=== PATIENT | female | born 1945 | race Caucasian/White ===

== ENCOUNTER 2020-03-18 17:37 | Emergency (ER) | payer OTHER ==
--- OUTSIDE RECORDS SUMMARY | 2020-03-18 17:56 | XMS REPORT | Clinical Summary ---
:1945 Author Organization [facility] Address [address] [place] [address] Care Team Providers Name Role Phone Asked, No Pcp Primary Care Provider Unavailable Allergies Not on File Medications Not on file Active Problems Not on file Social History Tobacco Use Types Packs/Day Years Used Date Never Assessed Sex Assigned at Date Recorded Not on file Last Filed Vital Signs Not on file Plan of Treatment Health Maintenance Due Date Last Done Comments COVID-19 VACCINE (1 of 2) 1961 BREAST CANCER SCREENING 1995 COLONOSCOPY SCREENING 1995 SHINGLES VACCINES (#1) 1995 65+ PNEUMOCOCCAL VACCINE (1 of 1 - PPSV23) 2010 INFLUENZA VACCINE 09/26/2019 Results Not on fileafter 2019 Advance Directives For more information, please contact: [phone] Type Date Recorded 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
--- OUTSIDE RECORDS SUMMARY | 2020-03-18 17:56 | XMS REPORT | Continuity of Care Document ---
:1945 Author Organization [facility] t Address [address] [place] [address] Care Team Providers Name Role Phone Asked, Pcp Primary Care Physician Unavailable Problems This patient has no known problems. Allergies, Adverse Reactions, Alerts This patient has no known allergies or adverse reactions. Social History Social Habit Start Date Stop Date Quantity Comments Source Sex Assigned At Jada [facility]oge[facility] Medications This patient has no known medications. Procedures This patient has no known procedures. Plan of Care Planned Activity Planned Date Details Comments Source Future Scheduled 2019-09-26 INFLUENZA VACCINE [place] [facility] 00:00:00 [code = INFLUENZA VACCINE] Future Scheduled 2010 65+ PNEUMOCOCCAL [place] [facility] Test 00:00:00 VACCINE (1 of 1 - PPSV23) [code = 65+ PNEUMOCOCCAL VACCINE (1 of 1 - PPSV23)] Future Scheduled 1995 BREAST CANCER [facility] Test 00:00:00 SCREENING [code = BREAST CANCER SCREENING] Future Scheduled 1995 COLONOSCOPY SCREENING [facility] Test 00:00:00 [code = COLONOSCOPY SCREENING] Future Scheduled 1995 SHINGLES VACCINES (#1) [place] [facility] Test 00:00:00 [code = SHINGLES VACCINES (#1)] Future Scheduled 1961 COVID-19 VACCINE (1 of [place] [facility] Test 00:00:00 2) [code = COVID-19 VACCINE (1 of 2)] Results This patient has no known results.
--- NOTE | 2020-03-18 20:55 | RAD REPORT ---
EXAM DESCRIPTION: RAD - Elbow Right 3 View - 03/18/2020 7:20 pm CLINICAL HISTORY: Pain;Swelling, trip and fall COMPARISON: No comparisons FINDINGS: Transverse fracture is present through the olecranon of the ulna. The proximal olecranon f racture fragment is distracted 2 cm. Fracture involves the articular surface. No distal humerus or pr oximal radius fracture. Soft tissue contusion and edema is present posterior to the elbow joint. No f oreign body. IMPRESSION: Fracture of the right side olecranon with 2 cm retraction of the fracture fragment from the body of the ulna.
--- NOTE | 2020-03-18 21:42 | ER ---
Nurse's Notes [facility] Name: Chelo Rdz Age: 75 yrs Sex: Female : 1945 Arrival Date: 03/18/2020 Time: 17:39 Bed 18 Private MD: Diagnosis: Right Olecranon Fracture;Fall-Mechanical Presentation: 03/18 18:25 Chief complaint: Patient states: Tripped and fell, landed on R elbow at about 1700 ca1 today. C/O R elbow pain and swelling. Denies LOC. Denies hitting head. Coronavirus screen: Client denies travel out of the [place] in the last 14 days. At this time, the client does not indicate any symptoms associated with coronavirus-19. Ebola Screen: Patient negative for fever greater than or equal to 101.5 degrees Fahrenheit, and additional compatible Ebola Virus Disease symptoms Patient denies exposure to infectious person. Patient denies travel to an Ebola-affected area in the 21 days before illness onset. No symptoms or risks identified at this time. Initial Sepsis Screen: Does the patient meet any 2 criteria? No. Patient's initial sepsis screen is negative. Does the patient have a suspected source of infection? No. Patient's initial sepsis screen is negative. Risk Assessment: Do you want to hurt yourself or someone else?. Onset of symptoms was March 18, 2020. 18:25 Method Of Arrival: Ambulatory ca1 18:25 Acuity: OLLIE 4 ca1 Historical: - Allergies: 18:28 No Known Allergies; ca1 - PMHx: 18:28 High Cholesterol; ca1 - PSHx: 18:28 D \T\ C; leg; ca1 - Immunization history:: Pneumococcal vaccine is up to date, Flu vaccine is up to date. - Social history:: Smoking status: Patient reports the use of cigarette tobacco products, smokes one-half pack cigarettes per day. Screenin:09 Abuse screen: Denies threats or abuse. Denies injuries from another. Nutritional mg2 screening: No deficits noted. Tuberculosis screening: No symptoms or risk factors identified. Fall Risk Fall in past 12 months (25 points). Assessment: 20:45 General: Appears in no apparent distress. comfortable, Behavior is calm, cooperative. mg2 Pain: Complains of pain in right elbow. Neuro: Level of Consciousness is awake, alert, obeys commands, Oriented to person, place, time, situation. Cardiovascular: Capillary refill < 3 seconds Patient's skin is warm and dry. Respiratory: Airway is patent Respiratory effort is even, unlabored, Respiratory pattern is regular, symmetrical. GI: No signs and/or symptoms were reported involving the gastrointestinal system. : EENT: No signs and/or symptoms were reported regarding the EENT system. Derm: Skin is intact, is healthy with good turgor, Skin is pink, warm \T\ dry. normal. Musculoskeletal: Capillary refill < 3 seconds, Swelling present in right elbow. Vital Signs: 18:25 BP 164 / 68; Pulse 78; Resp 18 S; Temp 97.7(TE); Pulse Ox 100% on R/A; Weight 70.31 kg ca1 (R); Height 5 ft. 4 in. (162.56 cm) (R); Pain 6/10; 21:52 BP 150 / 80; Pulse 80; Resp 18; Temp 98; Pulse Ox 100% on R/A; mg2 18:25 Body Mass Index 26.61 (70.31 kg, 162.56 cm) ca1 ED Course: 17:39 Patient arrived in ED. ag5 18:27 Triage completed. ca1 18:28 Arm band placed on right wrist. ca1 18:29 Affected limb iced. ca1 19:20 Elbow Right 3 View XRAY In Process Unspecified. EDMS 20:31 Austin Harris MD is Attending Physician. mh7 20:33 Enoc Meier, RN is Primary Nurse. mg2 21:10 Patient has correct armband on for positive identification. Door closed. Ice pack to mg2 injury. 21:10 No provider procedures requiring assistance completed. Patient did not have IV access mg2 during this emergency room visit. 21:40 Zeb Rachel MD is Referral Physician. mh7 21:41 Orthoglass splint: posterior long arm splint applied to the right arm. Sling applied to ds4 right arm. Administered Medications: No medications were administered Outcome: 21:42 Discharge ordered by . mh7 21:52 Discharged to home ambulatory. mg2 21:52 Condition: stable 21:52 Discharge instructions given to patient, Instructed on discharge instructions, follow up and referral plans. medication usage, Demonstrated understanding of instructions, follow-up care, medications, splint care, Prescriptions given X 1. 21:53 Patient left the ED. mg2 Signatures: Dispatcher [employer] EDMS Kwame Villeda ds4 Enoc Meier RN RN mg2 Izabel Ribeiro RN RN ca1 Rylee Jones ag5 Austin Harris MD MD 7
--- NOTE | 2020-03-18 21:42 | EDPHYS ---
Physician Documentation [facility] Name: Chelo Rdz Age: 75 yrs Sex: Female : 1945 Arrival Date: 03/18/2020 Time: 17:39 Bed 18 Private MD: ED Physician Austin Harris HPI: 03/18 20:53 This 75 yrs old Female presents to ER via Ambulatory with complaints of Fall mh7 Injury, Elbow Injury. 20:53 Details of fall: The patient fell from an upright position, while walking, and struck a mh7 concrete surface. Onset: The symptoms/episode began/occurred today. Associated injuries: The patient sustained Right elbow, contusion, ecchymosis, painful injury, swelling. Severity of symptoms: At their worst the symptoms were moderate, earlier today, in the emergency department the symptoms have improved, moderately. Historical: - Allergies: 18:28 No Known Allergies; ca1 - PMHx: 18:28 High Cholesterol; ca1 - PSHx: 18:28 D \T\ C; leg; ca1 - Immunization history:: Pneumococcal vaccine is up to date, Flu vaccine is up to date. - Social history:: Smoking status: Patient reports the use of cigarette tobacco products, smokes one-half pack cigarettes per day. ROS: 20:53 Constitutional: Negative for fever, chills, and weight loss, Eyes: Negative for injury, mh7 pain, redness, and discharge, ENT: Negative for injury, pain, and discharge, Neck: Negative for injury, pain, and swelling, Cardiovascular: Negative for chest pain, palpitations, and edema, Respiratory: Negative for shortness of breath, cough, wheezing, and pleuritic chest pain, Abdomen/GI: Negative for abdominal pain, nausea, vomiting, diarrhea, and constipation, Back: Negative for injury and pain, : Negative for injury, bleeding, discharge, and swelling, Neuro: Negative for headache, weakness, numbness, tingling, and seizure, Psych: Negative for depression, anxiety, suicide ideation, homicidal ideation, and hallucinations, Allergy/Immunology: Negative for hives, rash, and allergies, Endocrine: Negative for neck swelling, polydipsia, polyuria, polyphagia, and marked weight changes, Hematologic/Lymphatic: Negative for swollen nodes, abnormal bleeding, and unusual bruising. Exam: 20:53 Constitutional: This is a well developed, well nourished patient who is awake, alert, mh7 and in no acute distress. Head/Face: Normocephalic, atraumatic. Eyes: Pupils equal round and reactive to light, extra-ocular motions intact. Lids and lashes normal. Conjunctiva and sclera are non-icteric and not injected. Cornea within normal limits. Periorbital areas with no swelling, redness, or edema. Neck: Trachea midline, no thyromegaly or masses palpated, and no cervical lymphadenopathy. Supple, full range of motion without nuchal rigidity, or vertebral point tenderness. No Meningismus. Chest/axilla: Normal chest wall appearance and motion. Nontender with no deformity. No lesions are appreciated. Cardiovascular: Regular rate and rhythm with a normal S1 and S2. No gallops, murmurs, or rubs. Normal PMI, no JVD. No pulse deficits. Respiratory: Lungs have equal breath sounds bilaterally, clear to auscultation and percussion. No rales, rhonchi or wheezes noted. No increased work of breathing, no retractions or nasal flaring. Abdomen/GI: Soft, non-tender, with normal bowel sounds. No distension or tympany. No guarding or rebound. No evidence of tenderness throughout. Back: No spinal tenderness. No costovertebral tenderness. Full range of motion. Skin: Warm, dry with normal turgor. Normal color with no rashes, no lesions, and no evidence of cellulitis. 20:53 Neuro: Awake and alert, GCS 15, oriented to person, place, time, and situation. Cranial nerves II-XII grossly intact. Motor strength 5/5 in all extremities. Sensory grossly intact. Cerebellar exam normal. Normal gait. Psych: Awake, alert, with orientation to person, place and time. Behavior, mood, and affect are within normal limits. 20:53 Musculoskeletal/extremity: Extremities: noted in the right elbow: decreased ROM, ecchymosis, pain, swelling, tenderness, ROM: limited active range of motion due to pain, in the right elbow, limited passive range of motion due to pain, in the right elbow, Circulation is intact in all extremities. Pulses: are normal with no appreciated deficits, Perfusion: the patient is normally perfused throughout, Perfusion: the extremity is normally perfused throughout, Edema, is not appreciated, Sensation intact. Compartment Syndrome exam of affected extremity: is normal. no numbness, no tingling, no sensation deficit, no palor, no weak pulses, Joints: the right elbow displays painful range of motion, swelling, tenderness, Weight bearing: able to fully bear weight, without difficulty, Tendon exam: specific tendon testing normal through active and passive range of motion Vital Signs: 18:25 BP 164 / 68; Pulse 78; Resp 18 S; Temp 97.7(TE); Pulse Ox 100% on R/A; Weight 70.31 kg ca1 (R); Height 5 ft. 4 in. (162.56 cm) (R); Pain 6/10; 21:52 BP 150 / 80; Pulse 80; Resp 18; Temp 98; Pulse Ox 100% on R/A; mg2 18:25 Body Mass Index 26.61 (70.31 kg, 162.56 cm) ca1 Procedures: 21:39 Splinting: Splint applied to Right upper extremity using Orthoglass splint, sling, [facility] applied by tech. Examined by me, post splint application: neurovascular intact, 2+ distal pulses palpable, brisk capillary refill noted, Patient tolerated well. MDM: 21:39 Differential diagnosis: abrasion, contusion, fracture, sprain. Data reviewed: vital [facility] signs, nurses notes, radiologic studies, plain films. Data interpreted: Pulse oximetry: on room air is 100 %. Interpretation: normal. 21:39 Counseling: I had a detailed discussion with the patient and/or guardian regarding: the [facility] historical points, exam findings, and any diagnostic results supporting the discharge/admit diagnosis, the presence of at least one elevated blood pressure reading (>120/80) during this emergency department visit, radiology results, the need for outpatient follow up, a orthopedic surgeon, to return to the emergency department if symptoms worsen or persist or if there are any questions or concerns that arise at home. Response to treatment: the patient's symptoms have markedly improved after treatment. 21:42 Patient medically screened. [facility] 03/18 18:29 Order name: Elbow Right 3 View XRAY; Complete Time: 21:07 ca1 Administered Medications: No medications were administered Disposition: 03/18/20 21:42 Discharged to Home. Impression: Right Olecranon Fracture, Fall-Mechanical. - Condition is Stable. - Discharge Instructions: Olecranon Fracture, Fall Prevention in the Home, [id number]. - Prescriptions for Tramadol 50 mg Oral Tablet - take 1 tablet by ORAL route every 8 hours As needed as needed; 15 tablet. - Medication Reconciliation Form, Thank You Letter, Antibiotic Education, Prescription Opioid Use form. - Follow up: Zeb Rachel MD; When: 2 - 3 days; Reason: Worsening of condition, Recheck today's complaints, Continuance of care. - Problem is new. - Symptoms have improved. Signatures: Dispatcher [employer] EDMS Enoc Meier RN RN mg2 Acob, MUSTAPHA Paiz RN ca1 Austin Harris MD MD 7 Corrections: (The following items were deleted from the chart) 21:43 21:42 03/18/2020 21:42 Discharged to Home. Impression: Right Olecranon Fracture. mh7 Condition is Stable. Forms are Medication Reconciliation Form, Thank You Letter, Antibiotic Education, Prescription Opioid Use. Follow up: Zeb Rachel; When: 2 - 3 days; Reason: Worsening of condition, Recheck today's complaints, Continuance of care. Problem is new. Symptoms have improved. mh7 21:53 21:43 03/18/2020 21:42 Discharged to Home. Impression: Right Olecranon Fracture; mg2 Fall-Mechanical. Condition is Stable. Forms are Medication Reconciliation Form, Thank You Letter, Antibiotic Education, Prescription Opioid Use. Follow up: Zeb Rachel; When: 2 - 3 days; Reason: Worsening of condition, Recheck today's complaints, Continuance of care. Problem is new. Symptoms have improved. [facility]
[2020-03-18 21:57] VITALS: O2SAT 100
[2020-03-18 21:58] VITALS: BP 150/80; TEMP 98
== END 2020-03-18 21:53 | disposition home or self-care (01) ==
LOC: ER 17:37
PROC: 2W38X1Z Immobilization of Right Upper Extremity using Splint (ICD-10-PCS; principal; 2020-03-18)
DX: S52.021A Displaced fracture of olecranon process without intraarticular extension of right ulna, initial encounter for closed fracture (principal); W19.XXXA Unspecified fall, initial encounter; Y93.01 Activity, walking, marching and hiking; Y92.9 Unspecified place or not applicable; F17.210 Nicotine dependence, cigarettes, uncomplicated
CPT/HCPCS: 99283

== ENCOUNTER 2022-02-04 22:20 | Emergency (ER) | payer OTHER ==
--- OUTSIDE RECORDS SUMMARY | 2022-02-04 22:23 | XMS REPORT | Continuity of Care Document ---
:1945 Author Organization [facility] t Address [address] [place] [address] Care Team Providers Name Role Phone Asked, No Pcp Primary Care Physician Unavailable Problems This patient has no known problems. Allergies, Adverse Reactions, Alerts This patient has no known allergies or adverse reactions. Social History Social Habit Start Date Stop Date Quantity Comments Source Sex Assigned At [birth year] [facility] 00:00:00 00:00:00 Smoking Status Start Date Stop Date Source Tobacco smoking consumption unknown [facility] Medications This patient has no known medications. Procedures This patient has no known procedures. Plan of Care Planned Activity Planned Date Details Comments Source Future Scheduled 2022-01-14 HEPATITIS B VACCINES [facility] Test 16:58:50 (1 of 3 - 3-dose series) [code = HEPATITIS B VACCINES (1 of 3 - 3-dose series)] Future Scheduled 2022-01-14 COVID-19 VACCINE (#1) [facility] Test 16:58:50 [code = COVID-19 VACCINE (#1)] Future Scheduled 2022-01-14 COLONOSCOPY SCREENING [facility] Test 16:58:50 [code = COLONOSCOPY SCREENING] Future Scheduled 2022-01-14 SHINGLES VACCINES (1 [facility] Test 16:58:50 of 2) [code = SHINGLES VACCINES (1 of 2)] Future Scheduled 2022-01-14 65+ PNEUMOCOCCAL [facility] 16:58:50 VACCINE (1 - PCV) [code = 65+ PNEUMOCOCCAL VACCINE (1 - PCV)] Future Scheduled 2022-01-14 INFLUENZA VACCINE [facility] Test 16:58:50 [code = INFLUENZA VACCINE] Results This patient has no known results.
--- NOTE | 2022-02-04 23:42 | EDPHYS ---
Physician Documentation [facility] Name: Chelo Rdz Age: 76 yrs Sex: Female : 1945 Arrival Date: 02/04/2022 Time: 22:23 Bed 13 Private MD: ED Physician Carlos Godwin HPI: 02/04 22:40 This 76 yrs old Female presents to ER via Ambulatory with complaints of Fall Injury. cp 22:40 The patient presents with pain, that is acute. cp 22:40 The complaints affect the right ankle. Onset: The symptoms/episode began/occurred cp today. Context: resulted from the patient falling, while walking down stairs and carrying box, The patient can partially bear weight on the affected extremity. the patient is able to ambulate, with moderate difficulty. Associated signs and symptoms: The patient has no apparent associated signs or symptoms. Historical: - Allergies: 22:34 No Known Allergies; kl - Home Meds: 22:34 Simvastatin Oral for treatment to slow progression of coronary artery disease [Active]; kl - PMHx: 22:34 High Cholesterol; kl - Immunization history:: Client reports receiving the 2nd dose of the Covid vaccine. - Social history:: Smoking status: Patient denies any tobacco usage or history of. - Immunization history: Last tetanus immunization: - up to date. ROS: 22:45 MS/extremity: Positive for pain, swelling, tenderness, of the right ankle, Negative for cp decreased range of motion, paresthesias. 22:45 Constitutional: Negative for body aches, chills, fever, poor PO intake. cp 22:45 Back: Negative for pain at rest, pain with movement. cp 22:45 Eyes: Negative for injury, pain, redness, and discharge. cp 22:45 Neck: Negative for pain with movement, pain at rest. 22:45 Cardiovascular: Negative for chest pain. 22:45 Respiratory: Negative for cough, shortness of breath, wheezing. 22:45 Abdomen/GI: Negative for abdominal pain, nausea, vomiting, and diarrhea. 22:45 Neuro: Negative for altered mental status, headache, numbness, weakness. 22:45 All other systems are negative. Exam: 22:50 Constitutional: The patient appears in no acute distress, alert, awake, non-toxic, well cp developed, well nourished. 22:50 Head/Face: Normocephalic, atraumatic. cp 22:50 Neck: ROM/movement: is normal, is supple, without pain, no range of motions limitations. 22:50 Chest/axilla: Inspection: normal. 22:50 Cardiovascular: Rate: normal, Pulses: Pulses are 2+ in right dorsalis pedis artery. 22:50 Respiratory: the patient does not display signs of respiratory distress, Respirations: normal, no use of accessory muscles, no retractions. 22:50 Abdomen/GI: Exam negative for discomfort, distension, guarding, Inspection: abdomen appears normal. 22:50 Back: pain, is absent, ROM is normal. 22:50 Musculoskeletal/extremity: Extremities: grossly normal except: noted in the right ankle: lateral malleolus with swelling, tenderness and pain to palpation. Achilles tendon palpated and intact. No pain to palpation noted proximal right fibula and/or base of right fifth metatarsal. Vital Signs: 22:35 BP 162 / 76; Pulse 65; Resp 18; Temp 98.1(O); Pulse Ox 98% ; Weight 63.96 kg (M); kl Height 5 ft. 4 in. (162.56 cm); Pain 4/10; 02/05 00:38 BP 145 / 67; Pulse 66; Resp 17; Temp 98.1; Pulse Ox 99% on R/A; ke1 02/04 22:35 Body Mass Index 24.20 (63.96 kg, 162.56 cm) kl [place] Coma Score: 02/04 22:35 Eye Response: spontaneous(4). Verbal Response: oriented(5). Motor Response: obeys kl commands(6). Total: 15. Trauma Score (Adult): 22:35 Eye Response: spontaneous(1); Verbal Response: oriented(1); Motor Response: obeys kl commands(2); Systolic BP: > 89 mm Hg(4); Respiratory Rate: 10 to 29 per min(4); Sean Score: 15; Trauma Score: 12 MDM: 22:33 Patient medically screened. cp 23:40 Data reviewed: vital signs, nurses notes, radiologic studies, plain films. cp 23:40 Differential diagnosis: fracture, sprain, dislocation. Test interpretation: by ED cp physician or midlevel provider: plain radiologic studies. Counseling: I had a detailed discussion with the patient and/or guardian regarding: the historical points, exam findings, and any diagnostic results supporting the discharge/admit diagnosis, radiology results, the need for outpatient follow up, a family practitioner, to return to the emergency department if symptoms worsen or persist or if there are any questions or concerns that arise at home. Response to treatment: the patient's symptoms have markedly improved after treatment. 02/04 22:37 Order name: XRAY Ankle RIGHT 3 view cp 02/04 23:36 Order name: Walking boot; Complete Time: 00:38 cp 02/04 23:36 Order name: Crutches; Complete Time: 00:38 cp Administered Medications: 02/05 00:30 Drug: Ibuprofen 600 mg Route: PO; ke1 00:38 Follow up: Response: Medication administered at discharge. ke1 Disposition Summary: 02/04/22 23:41 Discharge Ordered Location: Home cp Problem: new cp Symptoms: have improved cp Condition: Stable cp Diagnosis - Sprain of ankle - right cp Followup: cp - With: Private Physician - When: 1 week - Reason: Recheck today's complaints Discharge Instructions: - Discharge Summary Sheet cp - Ankle Sprain cp - Walking Boot, Adult cp Forms: - Medication Reconciliation Form cp - Thank You Letter cp - Antibiotic Education cp - Prescription Opioid Use cp Prescriptions: - Ibuprofen 800 mg Oral Tablet - take 1 tablet by ORAL route every 8 hours As needed take with food; 30 tablet; cp Refills: 0, Product Selection Permitted Addendum: 02/06/2022 01:22 Co-signature as Attending Physician, Carlos Godwin MD. r n Signatures: Dispatcher [employer] Chana Michaels, RN Carlos Bermudez MD MD rn Page, Corey, PA PA cp Ebrottie, Kouassi, RN RN ke1
--- NOTE | 2022-02-04 23:42 | ER ---
Nurse's Notes [facility] Name: Chelo Rdz Age: 76 yrs Sex: Female : 1945 Arrival Date: 02/04/2022 Time: 22:23 Bed 13 Private MD: Diagnosis: Sprain of ankle-right Presentation: 02/04 22:32 Chief complaint: Patient states: fell while carrying box denies LOC c/o right ankle kl pain. Care prior to arrival: Medication(s) given: Tylenol, 500mg. Mechanism of Injury: Fall same level fall. Trauma event details: Injury occurred in the [facility], Injury occurred: at home. Injury occurred: February 04, 2022. 22:32 Acuity: OLLIE 4 kl 22:32 Method Of Arrival: Ambulatory 22:40 Coronavirus screen: Vaccine status: Patient reports receiving the 2nd dose of the covid ke1 vaccine. Ebola Screen: No symptoms or risks identified at this time. Initial Sepsis Screen: Does the patient meet any 2 criteria? No. Patient's initial sepsis screen is negative. Does the patient have a suspected source of infection? No. Patient's initial sepsis screen is negative. Risk Assessment: Do you want to hurt yourself or someone else? Patient reports no desire to harm self or others. Onset of symptoms was February 04, 2022. Historical: - Allergies: 22:34 No Known Allergies; kl - Home Meds: 22:34 Simvastatin Oral for treatment to slow progression of coronary artery disease [Active]; kl - PMHx: 22:34 High Cholesterol; kl - Immunization history:: Client reports receiving the 2nd dose of the Covid vaccine. - Social history:: Smoking status: Patient denies any tobacco usage or history of. - Immunization history: Last tetanus immunization: - up to date. Screenin:36 Abuse screen: Denies threats or abuse. Tuberculosis screening: No symptoms or risk kl factors identified. 22:40 Fall Risk Fall in past 12 months (25 points). No secondary diagnosis (0 pts). No IV (0 ke1 pts). Ambulatory Aid- None/Bed Rest/Nurse Assist (0 pts). Gait- Normal/Bed Rest/Wheelchair (0 pts) Mental Status- Oriented to own ability (0 pts). Total Oconnell Fall Scale indicates Low Risk Score (25-44 pts). Fall prevention measures have been instituted. Side Rails Up X 2 Frequent Obs/Assesments occuring As available Patient and Family Educated on Fall Prevention Program and strategies. 22:50 Nutritional screening: No deficits noted. ke1 02/05 00:21 [facility] ED Fall Risk Assessment (Adult) History of falling in the last 3 months, ke1 including since admission Yes- single mechanical fall (1 pt). Humpty Dumpty Scale Fall Assessment Tool (age< 18yrs). Primary Survey: 02/04 22:34 NO uncontrolled hemorrhage observed. A: The client is awake and alert. The airway is kl patent. Breathing/Chest: Spontaneous respiratory effort, equal unlabored respirations, breath sounds clear bilaterally, regular pattern, symmetrical chest rise and fall. Circulation: No external hemorrhage present. Regular and strong central pulse, skin warm/dry/normal color. Disability Pupils are equal, round, reactive to light and accommodation. Exposure/Environment: A warming method has been applied: A warm blanket has been provided to the patient. 22:40 Reassessment Alertness and Airway: Awake and alert. The airway is patent. Breathing: ke1 Spontaneous respiratory effort, equal unlabored respirations, breath sounds clear bilaterally, regular pattern with symmetrical chest rise and fall. Circulation: No external hemorrhage noted. Regular and strong central pulse, skin warm/dry/normal color. Disability: Pupils Pupils are equal, round, reactive to light and accomodation. Alert. Secondary Survey: 22:40 HEENT: No deficits noted. Gastrointestinal: No deficits noted. : No deficits noted. ke1 Musculoskeletal:. Musculoskeletal: No deficits noted. 22:40 R ankle pain. ke1 Assessment: 22:33 General: Appears in no apparent distress. comfortable, Behavior is calm, cooperative. kl Pain: Complains of pain in anterior aspect of right ankle Pain currently is 4 out of 10 on a pain scale. 02/05 00:38 Reassessment: Patient states feeling better. Patient states symptoms have improved. ke1 Vital Signs: 02/04 22:35 BP 162 / 76; Pulse 65; Resp 18; Temp 98.1(O); Pulse Ox 98% ; Weight 63.96 kg (M); kl Height 5 ft. 4 in. (162.56 cm); Pain 4/10; 02/05 00:38 BP 145 / 67; Pulse 66; Resp 17; Temp 98.1; Pulse Ox 99% on R/A; ke1 02/04 22:35 Body Mass Index 24.20 (63.96 kg, 162.56 cm) kl Felton Coma Score: 02/04 22:35 Eye Response: spontaneous(4). Verbal Response: oriented(5). Motor Response: obeys kl commands(6). Total: 15. Trauma Score (Adult): 22:35 Eye Response: spontaneous(1); Verbal Response: oriented(1); Motor Response: obeys kl commands(2); Systolic BP: > 89 mm Hg(4); Respiratory Rate: 10 to 29 per min(4); Sean Score: 15; Trauma Score: 12 ED Course: 22:23 Patient arrived in ED. bp1 22:27 Galdino Orta PA is PHCP. cp 22:27 Carlos Godwin MD is Attending Physician. cp 22:33 Triage completed. kl 22:40 Patient has correct armband on for positive identification. ke1 22:40 Patient maintains SpO2 saturation greater than 95% on room air. ke1 22:40 Thermoregulation: warm blanket given to patient. ke1 22:44 Arm band placed on left wrist. ke1 22:51 Rome Salgado RN is Primary Nurse. ke1 23:11 XRAY Ankle RIGHT 3 view In Process Unspecified. EDMS 12 00:16 No provider procedures requiring assistance completed. ke1 00:38 Patient did not have IV access during this emergency room visit. ke1 Administered Medications: 00:30 Drug: Ibuprofen 600 mg Route: PO; ke1 00:38 Follow up: Response: Medication administered at discharge. ke1 Medication: 00:20 VIS not applicable for this client. ke1 Outcome: 00:18 Discharged to home ambulatory. ke1 00:18 Condition: good 00:18 Discharge instructions given to patient. 00:39 Patient left the ED. ke1 Signatures: Dispatcher [employer] EDGA Chana Polanco RN RN kl Page, Corey, PA PA cp [place], [facility] Rome Salgado RN RN ke1 Corrections: (The following items were deleted from the chart) 00:18 02/04 23:41 Discharge ordered by . cp ke1
[2022-02-05] MEDS ORDERED: IBUPROFEN 200 MG TAB PO ONE (00:26)
[2022-02-05] MEDS ORDERED: IBUPROFEN 400 MG TAB ONE (00:26)
--- NOTE | 2022-02-05 17:41 | RAD REPORT ---
EXAM DESCRIPTION: RAD - Ankle Right 3 View - 02/04/2022 11:09 pm CLINICAL HISTORY: 76 years Female PAIN TECHNIQUE: Three views of the right ankle are provided. COMPARISON: No prior exams provided for comparison. FINDINGS: There is pronounced lateral soft tissue swelling without visualized acute right ankle frac ture or dislocation. There is a healed right distal tibial diaphyseal fracture. There is mild osteoar thritis at the right ankle joint with preservation of the ankle mortise. No aggressive osseous lesion . Other visualized joint spaces are preserved. IMPRESSION: Lateral soft tissue swelling without acute right ankle fracture or dislocation. Healed right distal tibial fracture. Electronically signed by: Lakeshia Nieves MD 02/04/2022 11:44 PM POLICY CHANGE CLERK Due to temporary technical issues with the PACS/Fluency reporting system, reports are being signed by the in house radiologists without review as a courtesy to insure prompt reporting. The interpreting radiologist is fully responsible for the content of the report.
== END 2022-02-05 00:39 | disposition home or self-care (01) ==
LOC: ER 22:20
DX: S93.401A Sprain of unspecified ligament of right ankle, initial encounter (principal)
CPT/HCPCS: 99284

== ENCOUNTER → 2023-04-10 | Emergency (ER) | payer OTHER ==
[2023-04-10 13:19] LABS: Absolute Lymphocytes (CBC) 1.7 K/uL (0.7-4.9); Hematocrit 40.1 % (36.0-45.0); Lymphocytes % 20.2 % (15.3-44.8); MCV 87.9 fL (80-100); MPV 8.3 fL (7.6-11.3); Platelets 225 thou/uL (152-406); RBC Red Blood Cell Count 4.56 M/uL (3.86-4.86)
[2023-04-10 13:40] LABS: Albumin 3.8 g/dL (3.4-5.0); Bilirubin Direct 0.2 mg/dL (0-0.2); Bilirubin Indirect, Calculated 0.2 mg/dL (0.2-0.8); Bilirubin Total 0.4 mg/dL (0.2-1.0); Potassium 3.4 mEq/L (3.5-5.1); Protein, Total 7.7 g/dL (6.4-8.2); Troponin High Sensitivity 5.9 pg/mL (<58.9)
--- NOTE | 2023-04-10 13:58 | EDPHYS ---
Physician Documentation [facility] Name: Chelo Rdz Age: 78 yrs Sex: Female : 1945 Arrival Date: 04/10/2023 Time: 12:35 Bed 11 Private MD: Deni Devine V ED Physician Billy Muhammad HPI: 04/10 13:49 This 78 yrs old Female presents to ER via Ambulatory with complaints of High Blood rt Pressure, Dizziness. 13:49 Patient presents to the ED with reported hypertension for the past week. She states rt that her blood pressure has been up to about 178 maximum but has been fluctuating. The patient reports having a dizziness and shaking. She describes the dizziness as a lightheadedness. Denies any true syncopal events. The patient states this occurred after starting on a new inhaler medication from primary. States that she is longer currently dizzy. Denies other acute complaints, symptoms are moderate severity, no other aggravating or alleviating factors.. Historical: - Allergies: 12:45 No Known Allergies; ld1 - PMHx: 12:45 High Cholesterol; Hypertensive disorder; ld1 - PSHx: 12:45 None; ld1 - Immunization history:: Adult Immunizations up to date. - Social history:: Smoking status: Patient denies any tobacco usage or history of. Patient/guardian denies using alcohol. ROS: 13:49 Constitutional: Negative for fever, chills, and weight loss, Cardiovascular: Negative rt for chest pain, palpitations, and edema, Respiratory: Negative for shortness of breath, cough, wheezing, and pleuritic chest pain, Abdomen/GI: Negative for abdominal pain, nausea, vomiting, diarrhea, and constipation, MS/Extremity: Negative for injury and deformity, Skin: Negative for injury, rash, and discoloration, Psych: Negative for depression, anxiety, suicide ideation, homicidal ideation, and hallucinations, 13:49 Neuro: Positive for near syncope, Negative for loss of consciousness, Exam: 13:49 Constitutional: This is a well developed, well nourished patient who is awake, alert, rt and in no acute distress. Head/Face: Normocephalic, atraumatic. Chest/axilla: Normal chest wall appearance and motion. Nontender with no deformity. No lesions are appreciated. Cardiovascular: Regular rate and rhythm with a normal S1 and S2. No gallops, murmurs, or rubs. Normal PMI, no JVD. No pulse deficits. Respiratory: Lungs have equal breath sounds bilaterally, clear to auscultation and percussion. No rales, rhonchi or wheezes noted. No increased work of breathing, no retractions or nasal flaring. Abdomen/GI: Soft, non-tender, with normal bowel sounds. No distension or tympany. No guarding or rebound. No evidence of tenderness throughout. Skin: Warm, dry with normal turgor. Normal color with no rashes, no lesions, and no evidence of cellulitis. MS/ Extremity: Pulses equal, no cyanosis. Neurovascular intact. Full, normal range of motion. Neuro: Awake and alert, GCS 15, oriented to person, place, time, and situation. Cranial nerves II-XII grossly intact. Motor strength 5/5 in all extremities. Sensory grossly intact. Cerebellar exam normal. Normal gait. 13:49 ECG was reviewed by the Attending Physician. Vital Signs: 12:44 BP 143 / 75; Pulse 74; Resp 18; Temp 98.6(TE); Pulse Ox 99% on R/A; Weight 61.69 kg; ld1 Height 5 ft. 4 in. ; Pain 0/10; 14:08 BP 135 / 69; Pulse 72; Resp 16; Pulse Ox 98% ; bp 12:44 Body Mass Index 23.34 (61.69 kg, 162.56 cm) ld1 12:44 Pain Scale: Adult ld1 MDM: 12:54 Patient medically screened. rt 13:58 Differential diagnosis: Hypertension, dysrhythmia, electrolyte disturbance, coronary rt disease. Data reviewed: vital signs, nurses notes, lab test result(s), EKG. Consideration of Admission/Observation Escalation of care including admission/observation considered. Labs, EKG unremarkable, no evidence of endorgan dysfunction, stable for outpatient care with primary care.. Care significantly affected by the following chronic conditions: Hypertension. Counseling: I had a detailed discussion with the patient and/or guardian regarding the historical points, exam findings, and any diagnostic results supporting the discharge/admit diagnosis, the presence of at least one elevated blood pressure reading (>120/80) during this emergency department visit, lab results, the need for outpatient follow up, to return to the emergency department if symptoms worsen or persist or if there are any questions or concerns that arise at home. 04/10 13:01 Order name: Basic Metabolic Panel; Complete Time: 13:43 rt 04/10 13:01 Order name: CBC with Diff; Complete Time: :43 rt 04/10 13:01 Order name: LFT's; Complete Time: 13:43 rt 04/10 13:01 Order name: Magnesium; Complete Time: :43 rt 04/10 13:01 Order name: Troponin HS; Complete Time: :43 rt 04/10 13:01 Order name: EKG; Complete Time: 13: rt 04/10 13:01 Order name: Cardiac monitoring; Complete Time: 13:30 rt 04/10 13:01 Order name: EKG - Nurse/Tech; Complete Time: 13:21 rt 04/10 13:01 Order name: IV Saline Lock; Complete Time: 13:21 rt 04/10 13:01 Order name: Labs collected and sent; Complete Time: 13:22 rt 04/10 13:01 Order name: O2 Per Protocol; Complete Time: :30 rt 04/10 13:01 Order name: O2 Sat Monitoring; Complete Time: 13:30 rt EC:49 Rate is 64 beats/min. Rhythm is regular, Normal Sinus Rhythm with No ectopy. QRS Paul rt is Normal. NE interval is normal. QRS interval is normal. QT interval is normal. No Q waves. T waves are Normal. No ST changes noted. Interpreted by me. Administered Medications: No medications were administered Disposition Summary: 04/10/23 13:58 Discharge Ordered Notes: Location: Home rt Problem: new rt Symptoms: have improved rt Condition: Stable rt Diagnosis - Near syncope rt Followup: rt - With: Private Physician - When: 2 - 3 days - Reason: Discharge Instructions: - Discharge Summary Sheet rt - Near-Syncope rt Forms: - Medication Reconciliation Form rt - Thank You Letter rt - Antibiotic Education rt - Prescription Opioid Use rt - Patient Portal Instructions rt - Leadership Thank You Letter rt Signatures: Dispatcher [employer] Jazmin Hazel, MUSTAPHA RN ld1 Billy Muhammad MD MD rt
--- NOTE | 2023-04-10 13:58 | ER ---
Nurse's Notes [facility] Name: Chelo Rdz Age: 78 yrs Sex: Female : 1945 Arrival Date: 04/10/2023 Time: 12:35 Bed 11 Private MD: Deni Devine V Diagnosis: Near syncope Presentation: 04/10 12:44 Chief complaint: Patient states: High BP X 1 week. C/O dizziness and shaking. ld1 Coronavirus screen: At this time, the client does not indicate any symptoms associated with coronavirus-19. Ebola Screen: No symptoms or risks identified at this time. Initial Sepsis Screen: Does the patient meet any 2 criteria? No. Patient's initial sepsis screen is negative. Does the patient have a suspected source of infection? No. Patient's initial sepsis screen is negative. Risk Assessment: Do you want to hurt yourself or someone else? Patient reports no desire to harm self or others. Onset of symptoms was April 10, 2023 at 12:44. 12:44 Method Of Arrival: Ambulatory ld1 12:44 Acuity: OLLIE 3 ld1 Triage Assessment: 12:45 General: Appears in no apparent distress. comfortable, Behavior is calm, cooperative, ld1 appropriate for age. Pain: Denies pain. EENT: No signs and/or symptoms were reported regarding the EENT system. Neuro: Level of Consciousness is awake, alert, obeys commands, Oriented to person, place, time, situation. Neuro: Reports dizziness. Cardiovascular: Capillary refill < 3 seconds Patient's skin is warm and dry. Respiratory: Airway is patent Respiratory effort is even, unlabored. GI: Abdomen is round non-distended. : No signs and/or symptoms were reported regarding the genitourinary system. Derm: No signs and/or symptoms reported regarding the dermatologic system. Musculoskeletal: No signs and/or symptoms reported regarding the musculoskeletal system. Historical: - Allergies: 12:45 No Known Allergies; ld1 - PMHx: 12:45 High Cholesterol; Hypertensive disorder; ld1 - PSHx: 12:45 None; ld1 - Immunization history:: Adult Immunizations up to date. - Social history:: Smoking status: Patient denies any tobacco usage or history of. Patient/guardian denies using alcohol. Screenin:08 [facility] ED Fall Risk Assessment (Adult) History of falling in the last 3 months, bp including since admission No falls in past 3 months (0 pts). Abuse screen: Denies threats or abuse. Denies injuries from another. Nutritional screening: No deficits noted. Tuberculosis screening: No symptoms or risk factors identified. Assessment: 12:45 General: SEE TRIAGE NOTE. bp 14:08 Reassessment: PT DC HOME AMBULATORY WITH FAMILY. bp Vital Signs: 12:44 BP 143 / 75; Pulse 74; Resp 18; Temp 98.6(TE); Pulse Ox 99% on R/A; Weight 61.69 kg; ld1 Height 5 ft. 4 in. ; Pain 0/10; 14:08 BP 135 / 69; Pulse 72; Resp 16; Pulse Ox 98% ; bp 12:44 Body Mass Index 23.34 (61.69 kg, 162.56 cm) ld1 12:44 Pain Scale: Adult ld1 ED Course: 12:38 Patient arrived in ED. mr 12:39 Deni Devine MD is Private Physician. mr 12:45 Triage completed. ld1 12:45 Arm band placed on right wrist. ld1 12:46 Jazmin Rucker, RN is Primary Nurse. ld1 12:47 Cirilo Murphy, RN is Primary Nurse. bp 12:52 Billy Muhammad MD is Attending Physician. rt 13:22 Basic Metabolic Panel Sent. bc6 13:22 LFT's Sent. bc6 13:22 Magnesium Sent. bc6 13:22 Troponin HS Sent. bc6 13:22 Inserted saline lock: 20 gauge in right antecubital area, using aseptic technique. bc6 Blood collected. 14:08 Patient has correct armband on for positive identification. bp 14:08 No provider procedures requiring assistance completed. IV discontinued, intact. bp Administered Medications: No medications were administered Medication: 14:08 VIS not applicable for this client. bp Outcome: 13:58 Discharge ordered by MD. rt 14:08 Discharged to home ambulatory, with family, bp 14:08 Condition: stable 14:08 Discharge instructions given to patient, Instructed on discharge instructions, follow up and referral plans. Demonstrated understanding of instructions, follow-up care, 14:10 Patient left the ED. bp Signatures: Rachel Thibodeaux, Reg Reg mr Cirilo Murphy, MUSTAPHA RN bp Jazmin Rucker RN RN ld1 Billy Muhammad MD MD rt Umm Rivera bc6
[2023-04-10 16:00] VITALS: BP 135/69; TEMP 98.6; O2SAT 98
--- NOTE | 2023-04-11 14:41 | EKG ---
Test Date: 2023-04-10 Test Time: 13:18:17 Radio Station Engineer: CAROLE MEASUREMENT RESULTS: Intervals: Rate: 64 UT: 172 QRSD: 80 QT: 438 QTc: 451 [place]: P: 76 UT: 172 QRS: 96 T: 83 INTERPRETIVE STATEMENTS: Normal sinus rhythm Normal ECG Compared to ECG 04/12/1998 15:46:00 Right-axis deviation no longer present Electronically Signed On 04-11-23 14:39:55 GRAIN SHOVELER by Abelino Velázquez
== END ==
LOC: ER 12:35
DX: R55 Syncope and collapse (principal); I10 Essential (primary) hypertension; E78.00 Pure hypercholesterolemia, unspecified
CPT/HCPCS: 36415; 80048; 80076; 83735; 84484; 85025